=== PATIENT | female | born 1940 | race Caucasian/White ===

== ENCOUNTER → 2018-08-28 | Outpatient (CLI) | payer MEDICARE ==
[~2018-08-28] MED LIST: ASPI-496 PO; AZIT250T PO; B CO1TAB14 PO; BIOT25005 PO; CYAN100072 PO; ESCI10TA10 PO; FLUT9.9S NS; LEVO50TA5 PO; LOSA100T14 PO; MELO7.5T31 PO; MULT-658 PO; OMEG-69 PO; PANT40TA5 PO; POTA99TA2 PO; SIMV20TA3 PO; VERA180T6 PO
[2018-08-28 15:10] LABS: ALANINE AMINOTRANSFERASE 51 U/L (12-78); ALBUMIN 3.7 g/dL (3.4-5.0); ANION GAP 5 mmol/L (5-15); CALCIUM 9.4 mg/dL (8.5-10.1); CHLORIDE 105 mmol/L (98-107)
[2018-08-28 15:12] LABS: ALKALINE PHOSPHATASE 80 U/L (45-117); TOTAL PROTEIN 7.7 g/dL (6.4-8.2)
== END | disposition home or self-care (01) ==
LOC: STAR 13:44
PROVIDERS: ATTEND Internal Medicine Gastroenterology
DX: Z01.818 Encounter for other preprocedural examination (principal); I44.4 Left anterior fascicular block; I51.7 Cardiomegaly; Z88.1 Allergy status to other antibiotic agents
CPT/HCPCS: 36415; 80053; 93005

== ENCOUNTER 2018-09-03 11:26 | Day surgery (SDC) | payer MEDICARE ==
[~2018-09-03] VITALS: Ht 170.2 cm; Wt 121.0 kg
[2018-09-03] MEDS: LACTATED RINGERS 1,000 ML IV SCH ×2 (12:26→12:27)
[2018-09-03] MEDS ORDERED: PROPOFOL 10 MG/ML, 20ML ONE (13:02)
[2018-09-03] MEDS ORDERED: PROMETHAZINE 25 MG/ML, 1ML IV PRN (14:00)
[2018-09-03] MEDS ORDERED: ACETAMINOPHEN 325 MG TABLET PO PRN (14:00)
[2018-09-03] MEDS ORDERED: hydrALAzine 20 MG/ML, 1ML IV PRN (14:00)
[2018-09-03] MEDS ORDERED: LABETALOL 5MG/ML, 20ML IV PRN (14:00)
[2018-09-03] MEDS ORDERED: EPHEDRINE 50 MG/ML, 1ML IVPush PRN (14:00)
[2018-09-03] MEDS ORDERED: PROMETHAZINE 12.5 MG SUPP PR PRN (14:00)
[2018-09-03] MEDS ORDERED: HALOPERIDOL 5 MG/ML IV PRN (14:00)
[2018-09-03] MEDS ORDERED: ONDANSETRON 2MG/ML, 2ML IV PRN (14:00)
[2018-09-03] MEDS ORDERED: MIDAZOLAM 1 MG/ML, 2ML IV PRN (14:00)
[2018-09-03] MEDS ORDERED: FENTANYL PF 100 MCG/2ML IV PRN (14:00)
[2018-09-03] MEDS ORDERED: OXYcodone 5 MG/5 ML ORAL.SOL UDC PO PRN (14:00)
[2018-09-03] MEDS ORDERED: ALBUTEROL SULFATE 2.5 MG/3 ML NPPB PRN (14:00)
[2018-09-03] MEDS ORDERED: HYDROmorphone 2 MG/ML, 1ML IVPush PRN (14:00)
[2018-09-03] MEDS ORDERED: MEPERIDINE/PF 25MG/0.5ML IVPush PRN (14:00)
[2018-09-03] MEDS ORDERED: DIAZEPAM 5 MG/ML, 2ML IVPush PRN (14:00)
[2018-09-03] MEDS ORDERED: MORPHINE SULFATE 4 MG/ML, 1ML IVPush PRN (14:00)
[2018-09-03] MEDS ORDERED: ONDANSETRON ODT 8 MG PO PRN (14:00)
== END 2018-09-03 15:10 | disposition home or self-care (01) ==
LOC: OR 11:26
PROVIDERS: ATTEND Internal Medicine Gastroenterology
DX: Z09 Encounter for follow-up examination after completed treatment for conditions other than malignant neoplasm (principal); K63.5 Polyp of colon; K57.30 Diverticulosis of large intestine without perforation or abscess without bleeding; K64.4 Residual hemorrhoidal skin tags; E78.5 Hyperlipidemia, unspecified; I10 Essential (primary) hypertension; E03.9 Hypothyroidism, unspecified; G47.33 Obstructive sleep apnea (adult) (pediatric); E66.9 Obesity, unspecified; Z88.0 Allergy status to penicillin; Z86.010 Personal history of colon polyps; Z98.890 Other specified postprocedural states; Z88.8 Allergy status to other drugs, medicaments and biological substances; Z68.42 Body mass index [BMI] 45.0-49.9, adult
CPT/HCPCS: 45385; 88305; J2704; J7120